=== PATIENT | female | born 2000 | race Caucasian/White ===

== ENCOUNTER 2018-10-20 10:18 | Emergency (ER) | payer OTHER ==
[2018-10-20 10:28] VITALS: BP 137/94
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
== END 2018-10-20 12:42 | disposition home or self-care (01) ==
LOC: ED 10:18
DX: S16.1XXA Strain of muscle, fascia and tendon at neck level, initial encounter (principal); V48.1XXA Car passenger injured in noncollision transport accident in nontraffic accident, initial encounter
CPT/HCPCS: 72125; 99283

== ENCOUNTER 2018-10-20 14:32 | Emergency (ER) | payer OTHER ==
[2018-10-20 15:14] VITALS: BP 110/80
[2018-10-20] MEDS ORDERED: BUFFERED LIDOCAINE 10 ML SYRINGE SUBQ STA (15:42)
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
== END 2018-10-20 16:11 | disposition home or self-care (01) ==
LOC: ED 14:32
DX: S01.01XA Laceration without foreign body of scalp, initial encounter (principal); S06.0X0A Concussion without loss of consciousness, initial encounter; S16.1XXA Strain of muscle, fascia and tendon at neck level, initial encounter; V48.1XXA Car passenger injured in noncollision transport accident in nontraffic accident, initial encounter
CPT/HCPCS: 12001; 72125; 99283